=== PATIENT | female | born 1955 | race Caucasian/White ===

== ENCOUNTER 2024-06-08 09:22 | Outpatient (CLI) | payer MEDICARE ==
[2024-06-08 10:04] LABS: Hematocrit 45.9 % (34.9-44.5); Hemoglobin 14.7 g/dL (12.0-15.5)
[2024-06-08 10:43] LABS: Anion Gap 15 mmol/L (10-20); BUN (Urea Nitrogen) 7 mg/dL (9.8-20.1); Calc. Creatinine Clearance 0 mL/min (70-130); Carbon Dioxide 23 mmol/L (23-31); Chloride 107 mmol/L (98-107); Estimated GFR 78; Glucose 96 mg/dL (80-115); Potassium 4.1 mmol/L (3.5-5.1); Sodium 141 mmol/L (136-145)
== END 2024-06-08 09:23 | disposition home or self-care (01) ==
LOC: CSHLAB 09:22
PROVIDERS: ATTEND Otolaryngology Plastic Surgery within the Head & Neck
DX: Z01.818 Encounter for other preprocedural examination (principal); C02.9 Malignant neoplasm of tongue, unspecified
CPT/HCPCS: 80048; 85014; 85018; 93005; 93010

== ENCOUNTER 2024-06-14 06:53 | Observation (INO) | payer MEDICARE ==
[2024-06-14] MEDS ORDERED: AFRIN NASAL MIST 15 ML BOT ONE (09:07)
[2024-06-14] MEDS ORDERED: SUGAMMADEX SODIUM 200 MG/2 ML VIAL ONE (09:19)
[2024-06-14] MEDS ORDERED: Rocuronium Bromide 10 MG/ML (10ML VIAL) ONE (09:19)
[2024-06-14] MEDS ORDERED: Dexamethasone 4 mg/ml Vial ONE (09:19)
[2024-06-14] MEDS ORDERED: Ondansetron PF 4 MG/2 ML Vial ONE (09:19)
[2024-06-14] MEDS ORDERED: Lidocaine 1% PF 5 ML VIAL ONE ×2 (09:19→11:08)
[2024-06-14] MEDS ORDERED: PROPOFOL 40 ML ONE (09:20)
[2024-06-14] MEDS ORDERED: fentaNYL 50 mcg/mL 1 mL Vial ONE ×4 (09:21→13:19)
[2024-06-14] MEDS ORDERED: Sevoflurane 250 ML INH ANEST BOTTLE ONE (09:59)
[2024-06-14] MEDS ORDERED: Ondansetron PF 4 MG/2 ML Vial IVP PRN (10:07)
[2024-06-14] MEDS ORDERED: Acetaminophen/Codeine 30-300mg Tablet PO PRN (10:07)
[2024-06-14] MEDS ORDERED: Acetaminophen 325 MG TAB PO PRN (10:07)
[2024-06-14] MEDS ORDERED: CEFAZOLIN 1 GM VIAL ONE (11:08)
[2024-06-14] MEDS ORDERED: PHENYLEPHRINE-NS 100 MCG/ML 10 ML SYRINGE ONE (11:08)
[2024-06-14] MEDS ORDERED: Glycopyrrolate 0.2 MG/ML 5 ML SYRINGE ONE (11:08)
[2024-06-14] MEDS ORDERED: Esmolol 100 MG/10 ML VIAL ONE (11:08)
[2024-06-14] MEDS ORDERED: Oxymetazoline HCl 0.05% ( 15 ML ) ONE (11:20)
[2024-06-14] MEDS ORDERED: EPINEPHrine 1 MG/ML AMP ONE (11:20)
[2024-06-14 14:29] VITALS: BMI 36.3
[2024-06-14] MEDS: Morphine 4 MG/ML VIAL SLOW IVP PRN (15:39)
[2024-06-14] MEDS: Chlorhexidine Gluconate 15 ML UDCUP SSP SCH (18:32)
[2024-06-15] MEDS: Dexamethasone 20 MG/5 ML VIAL SLOW IVP SCH (06:20)
[2024-06-15 09:10] VITALS: BP 103/67; TEMP 98.4
== END 2024-06-15 09:11 | disposition home or self-care (01) ==
LOC: CSHSDC 06:53 → CSHTELE 14:18
PROVIDERS: ADMIT Otolaryngology Plastic Surgery within the Head & Neck; ATTEND Otolaryngology Plastic Surgery within the Head & Neck
PROC: 0CB7XZZ Excision of Tongue, External Approach (ICD-10-PCS; principal; 2024-06-14)
DX: C01 Malignant neoplasm of base of tongue (principal); E66.9 Obesity, unspecified; Z68.36 Body mass index [BMI] 36.0-36.9, adult; Z90.710 Acquired absence of both cervix and uterus; Z87.891 Personal history of nicotine dependence; Z88.0 Allergy status to penicillin; Z79.899 Other long term (current) drug therapy
CPT/HCPCS: 41112; J0171; J0690; J1100 ×2; J2272 ×2; J2405; J2704; J3010; 88305; 88309

== ENCOUNTER 2024-08-02 06:00 | Observation (INO) | payer MEDICARE ==
[2024-08-02] MEDS ORDERED: Dexamethasone 4 mg/ml Vial ONE (06:52)
[2024-08-02] MEDS ORDERED: Rocuronium Bromide 10 MG/ML (10ML VIAL) ONE (06:52)
[2024-08-02] MEDS ORDERED: Lidocaine 1% PF 5 ML VIAL ONE (06:52)
[2024-08-02] MEDS ORDERED: PROPOFOL 40 ML ONE (06:52)
[2024-08-02] MEDS ORDERED: Ondansetron PF 4 MG/2 ML Vial ONE (06:52)
[2024-08-02] MEDS ORDERED: SUGAMMADEX SODIUM 200 MG/2 ML VIAL ONE (06:52)
[2024-08-02] MEDS ORDERED: fentaNYL 50 mcg/mL 1 mL Vial ONE ×2 (06:53→11:18)
[2024-08-02] MEDS ORDERED: Lidocaine 1% (PF) 30 ML VIAL ONE (07:51)
[2024-08-02] MEDS ORDERED: CEFAZOLIN 2 GM VIAL ONE (07:51)
[2024-08-02] MEDS ORDERED: EPINEPHrine 1 MG/ML AMP ONE (08:46)
[2024-08-02] MEDS ORDERED: Phenylephrine 40 MG/NS 250 ML 250 ML ONE (08:51)
[2024-08-02] MEDS ORDERED: Mupirocin 2% Ointment 22 GM Tube ONE (11:18)
[2024-08-02] MEDS ORDERED: Acetaminophen 325 MG TAB PO PRN (11:36)
[2024-08-02] MEDS ORDERED: Ondansetron PF 4 MG/2 ML Vial IVP PRN (11:36)
[2024-08-02 13:37] VITALS: BMI 35.6
[2024-08-02] MEDS: Acetaminophen/Codeine 30-300mg Tablet PO PRN (14:29)
[2024-08-02] MEDS: CEFAZOLIN 1 GM in Sodium Chloride 0.9% 100 ML IVPB SCH (14:30)
[2024-08-02] MEDS: Morphine 4 MG/ML VIAL SLOW IVP PRN (16:26)
[2024-08-03 16:21] VITALS: BP 104/57; TEMP 98.1
== END 2024-08-03 16:21 | disposition home or self-care (01) ==
LOC: CSHSDC 06:00 → CSHTELE 07:40
PROVIDERS: ADMIT Otolaryngology Plastic Surgery within the Head & Neck; ATTEND Otolaryngology Plastic Surgery within the Head & Neck
PROC: 07T20ZZ Resection of Left Neck Lymphatic, Open Approach (ICD-10-PCS; principal; 2024-08-02)
PROC: 07T10ZZ Resection of Right Neck Lymphatic, Open Approach (ICD-10-PCS; 2024-08-02)
DX: C02.9 Malignant neoplasm of tongue, unspecified (principal); Z87.891 Personal history of nicotine dependence; Z90.710 Acquired absence of both cervix and uterus; Z88.0 Allergy status to penicillin; Z79.899 Other long term (current) drug therapy
CPT/HCPCS: 38700; 94760 ×2; 94762; C1889; J0690 ×2; J1100; J2272 ×2; J2405; J2704; J3010; 88305; 88307; J0171